=== PATIENT | male | born 1945 | race Caucasian/White ===

== ENCOUNTER → 2022-12-10 08:23 | Outpatient (BNVA) | payer OTHER, SELFPAY | PROVIDERS: PCP Internal Medicine; Visit Provider Nurse Practitioner Family | DX: Z13.89 Encounter for screening for other disorder (principal) ==

== ENCOUNTER → 2023-03-15 08:22 | Outpatient (BNVA) | payer OTHER, SELFPAY | PROVIDERS: PCP Internal Medicine; Visit Provider Nurse Practitioner Family | DX: Z13.89 Encounter for screening for other disorder (principal) ==

== ENCOUNTER 2023-06-17 09:35 | Outpatient (AMB) | payer OTHER, SELFPAY ==
[2023-06-17 09:36] VITALS: BP 132/82; PULSE 62; O2SAT 7; BMI 24.9
--- NOTE | 2023-06-17 09:36 | A.OFFVIS_ITS ---
Intake Vital Signs 06/17/23 09:36 Height 6 ft 1 in Weight 188 lb 8 oz BMI 24.9 BP 132/82 Blood Pressure Location Lt brachial Position Sitting Pulse 62 Pulse Source Pulse Oximeter Pulse Oximetry (%) 7 L Oxygen Delivery Method Room Air Intake Visit Reasons: 3m follow up balance Intake Note: Pt presents as a 3 month f/u for balance. ok, doing my balance exercises. Jojo sent me to a vestibular therapist and it seems to have resolved, I had it and it went away and came back so I went back to therapy and it went away. 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 Pt denies any significant interval medical history changes. Pt's current PD medication regimen: None Pt's primary concerns are: Pt and wish to review results of DaTscan and why we feel dx is liekly PD vs DLB, MSA, CBD, etc. He did vestibular tx- which was very effective, but then the room spinning dizziness came back- so he went back to PT an dthis resolved. ADL's: Ind Swallowing: No issues Orthostatic lightheadedness: not too bad Constipation: Some- not taking anything for this Freezing: No issues Stiffness: Sometimes in his neck Tremor: Mostly in the left hand- often with picking something up or holding something Falls: 1- leaned forward to pick something up and then kept going- and fell. Hallucinations: None Memory: No issues Sleep: Waking up a bit earlier- at 6am. Goes to bed around 10:30-11pm. May take a catnap- unintentionally. Exercise: Doing PT exercises. [facility] Medical History Hypothyroidism Surgical History Corneal transplant status Hx of cataract surgery Family History Mother Colon cancer Breast cancer Father Prostate cancer CAD (coronary artery disease) CHF (congestive heart failure) Social History (Updated 06/17/23 @ 09:42 by Liss Shane [facility]) Alcohol intake: current Alcohol intake frequency: a few times a month Patient Tobacco Use Status: Never used Tobacco Review of Systems Const All systems reviewed & are unremarkable except as noted in HPI and below Physical Exam Vital Signs: Last Vital Signs Pulse 62 06/17/23 09:36 BP 132/82 06/17/23 09:36 Pulse Ox 7 L 06/17/23 09:36 Oxygen Delivery Method Room Air 06/17/23 09:36 BMI result Body Mass Index 24.9 Const General: cooperative and no acute distress Resp Effort & Inspection: normal respiratory effort and able to speak in complete sentences Neuro Other: Mild soft voice. Mild lingual movements. BUE L > R postural and kinetic tremor. Very mild RUE stiffness. FFM- intact. Foot taps- decreased, more so on left Stands ok, mildy decreased left arm swing, stride ok, wide and multiple steps to turn. General: patient oriented x3, CN's II-XI intact bilaterally Psych: Pleasant affect Assessment & Plan Assessment & Plan (1) Parkinson's disease: Comment: + Ankit Scan (Dec 2022) Code(s): G20 - Parkinson's disease (2) Vertigo: Code(s): R42 - Dizziness and giddiness Plan Reviewed DaTscan results. Discussed at this time s/s are most c/w Parkinson's, however we will continue to monitor symptoms. No dopaminergic tx indicated at this time. Advised to continue PT exercises. Stressed importance of moving a bit more slowly and carefully. Vertigo improved- monitor clinically for now. F/u in 6 months or sooner. Coding Level of Care Code Est Pt Level 3 (25593) Diagnoses Parkinson's disease G20 Vertigo R42
== END 2023-06-17 10:37 | disposition home or self-care (01) ==
PROVIDERS: Visit Provider Nurse Practitioner Family
DX: G20 Parkinson's disease (principal); R42 Dizziness and giddiness
CPT/HCPCS: 99213

== ENCOUNTER → 2023-06-17 09:35 | Outpatient (BNVA) | payer OTHER, SELFPAY | PROVIDERS: Visit Provider Nurse Practitioner Family | DX: R42 Dizziness and giddiness (principal); G20 Parkinson's disease ==

== ENCOUNTER 2023-12-19 09:23 | Outpatient (AMB) | payer BC, SELFPAY ==
[2023-12-19 09:24] VITALS: BP 130/70; PULSE 60; O2SAT 99; BMI 25.5
--- NOTE | 2023-12-19 09:24 | MHC.OFFVIS ---
Intake Vital Signs 12/19/23 09:24 Height 6 ft 1 in Weight 193 lb 6 oz BMI 25.5 BP 130/70 Blood Pressure Location Rt brachial Position Sitting Pulse 60 Pulse Source Pulse Oximeter Pulse Oximetry (%) 99 Oxygen Delivery Method Room Air Intake Visit Reasons: 6m f/u balance - LVM Intake Note: Pt here for a follow up , still feels unbalance and tremors are still the same. Design Lead Required: No Accompanied by: Spouse Allergies No Known Allergies Allergy (Verified 12/19/23 09:28) HPI HPI Comments History of Present Illness Details 78-yr-old male presents for f/u visit of PD, accompanied by his . [place] they wonder what is expected progression of PD and what can help. Pt denies any significant interval medical history changes. Pt's current PD medication regimen: None Right-handed ADL's: Ind Swallowing: No issues Drooling: maybe some increased saliva Orthostatic lightheadedness: None Constipation: It is better now Freezing: None Stiffness: A little bit Tremor: Mostly in the left hand, a little in the right- varies. Gait/Falls: Still feels off-balance- walking straight and veers to one side or the other or if he turns quickly. 2 interval falls. One he fell forward while bending over trying to pick something up- this caused knee pain etc which is better. The other he fell backwards at the top of his stairs- was carrying something. Hallucinations: None Memory: He thinks it is ok. Sleep: Sleeping ok Exercise: He is walking on a treadmill 4 times a week, doing some light weight training, and balance exercises. [facility] Medical History (Updated 12/19/23 @ 20:43 by LOUIE Marcus) Parkinson's disease Hypothyroidism Surgical History Hx of cataract surgery Corneal transplant status Family History Mother Colon cancer Breast cancer Father Prostate cancer CAD (coronary artery disease) CHF (congestive heart failure) Social History Alcohol intake: current Alcohol intake frequency: a few times a month Patient Tobacco Use Status: Never used Tobacco Review of Systems Const All systems reviewed & are unremarkable except as noted in HPI and below Physical Exam Vital Signs: Last Vital Signs Pulse 60 12/19/23 09:24 BP 130/70 12/19/23 09:24 Pulse Ox 99 12/19/23 09:24 Oxygen Delivery Method Room Air 12/19/23 09:24 BMI result Body Mass Index 25.5 Const General: cooperative and no acute distress Resp Effort & Inspection: normal respiratory effort and able to speak in complete sentences Neuro Other: A&O x's 3 Mild soft voice. No lingual movements today BUE L > R postural and kinetic tremor. Very mild RUE stiffness. FFM- mild decrease on left. Foot taps- decreased, more so on left Stands ok, mildly decreased left arm swing, stride ok, wide and multiple steps to turn. Pleasant affect Assessment & Plan Assessment & Plan (1) Parkinson's disease without dyskinesia: Comment: + Ankit Scan (Dec 2022) Code(s): G20.A1 - Parkinson's disease without dyskinesia, without mention of fluctuations (2) Tremor: Code(s): R25.1 - Tremor, unspecified (3) Loss of balance: Code(s): R26.89 - Other abnormalities of gait and mobility Plan Reviewed that regular physical exercise is best known strategy to slow PD progression. Pt encouraged to consider trying a local PD exercise class- PD resources shared. In the meantime, advised to continue PT exercises. Reviewed risk for postural instability in PD- stressed importance of moving a bit more slowly, turning slowly and carefully.. No dopaminergic tx indicated at this time. Vertigo improved- monitor clinically for now. F/u in 6 months or sooner. Coding Level of Care Code Est Pt Level 4 (16127) Diagnoses Parkinson's disease without dyskinesia G20.A1 Tremor R25.1 Loss of balance R26.89
== END 2023-12-19 10:31 | disposition home or self-care (01) ==
PROVIDERS: PCP Student in an Organized Health Care Education/Training Program; Visit Provider Nurse Practitioner Family
DX: G20.A1 Parkinson's disease without dyskinesia, without mention of fluctuations (principal); R26.89 Other abnormalities of gait and mobility; R29.6 Repeated falls
CPT/HCPCS: 99214

== ENCOUNTER → 2023-12-19 09:23 | Outpatient (BNVA) | payer BC, SELFPAY | PROVIDERS: PCP Student in an Organized Health Care Education/Training Program; Visit Provider Nurse Practitioner Family | DX: R42 Dizziness and giddiness (principal) ==

== ENCOUNTER 2024-05-29 09:29 | Outpatient (AMB) | payer BC, SELFPAY ==
--- NOTE | 2024-05-29 09:38 | MHC.OFFVIS ---
Vital Signs 05/29/24 09:42 Height 6 ft 1 in Weight 187 lb 8 oz BMI 24.7 BP 122/70 Blood Pressure Location Lt brachial Position Sitting Pulse 64 Pulse Source Pulse Oximeter Pulse Oximetry (%) 99 Oxygen Delivery Method Room Air Intake Visit Reasons: 6 mo f/u-LMV Intake Note: Patient request 6 months f/u. Allergies No Known Allergies Allergy (Verified 05/29/24 09:41) Medication List - Last Reconciled 05/29/24 by LOUIE Marcus cyclosporine 0.05% drps ophthalmic (eye) levothyroxine 88 mcg PO DAILY lisinopril 10 mg PO DAILY multivitamin 1 tab PO DAILY prednisolone acetate 1% 1 drp ophthalmic-Right DAILY HPI Comments Details: 79-yr-old male presents for f/u visit, accompanied by his . Pt denies any significant interval medical history changes. Pt sttaes he doing overall well, just that some days he feels his gait is a bit more off balance. He is curious about trying vit B2 and b7. And benefits of cognitive activities. Pt's current PD medication regimen: None Right-handed ADL's: Ind Swallowing: No issues Drooling: maybe some increased saliva Orthostatic lightheadedness: Sometimes- if he gets up quick. Constipation: It is better now Freezing: None Stiffness: A little bit Tremor: Mostly in the left hand, a little in the right- varies. Gait/Falls: No interval falls. Hallucinations: None Memory: He thinks it is ok- most of the times . Sleep: Sleeping ok Exercise: He is walking on a treadmill 4 times a week, doing some light weight training, and balance exercises. [facility] Medical History (Updated 12/19/23 @ 20:43 by LOUIE Marcus) Parkinson's disease Hypothyroidism Surgical History Hx of cataract surgery Corneal transplant status Family History Mother Colon cancer Breast cancer Father Prostate cancer CAD (coronary artery disease) CHF (congestive heart failure) Social History Alcohol intake: current Alcohol intake frequency: a few times a month Patient Tobacco Use Status: Never used Tobacco Review of Systems Const All systems reviewed & are unremarkable except as noted in HPI and below Physical Exam Vital Signs: Last Vital Signs Pulse 64 05/29/24 09:42 BP 122/70 05/29/24 09:42 Pulse Ox 99 05/29/24 09:42 Oxygen Delivery Method Room Air 05/29/24 09:42 BMI result Body Mass Index 24.7 Const General: cooperative and no acute distress Resp Effort & Inspection: normal respiratory effort and able to speak in complete sentences Neuro Other: A&O x's 3 Mild soft voice. No lingual movements today No rest tremor. BUE L > R postural and kinetic tremor. Very mild RUE stiffness. FFM- mild decrease on left. Foot taps- decreased, more so on left Stands ok, mildly decreased left arm swing, stride ok, better turn today.. Pleasant affect Assessment & Plan Assessment & Plan (1) Parkinson's disease without dyskinesia: Comment: + Ankit Scan (Dec 2022) Code(s): G20.A1 - Parkinson's disease without dyskinesia, without mention of fluctuations Category: Medical (2) Loss of balance: Code(s): R26.89 - Other abnormalities of gait and mobility Category: Medical (3) Tremor: Code(s): R25.1 - Tremor, unspecified Category: Medical Plan Pt may take a daily Vitamin B complex. No indications to start dopaminergic tx at this time. Reviewed that regular physical exercise is best known strategy to slow PD progression. Try to add new exercises and vary exercise routine. Pt encouraged to check online for PD exercise suggestions. Reinforced risk for postural instability in PD- stressed importance of moving a bit more slowly, turning slowly and carefully.. Vertigo improved- monitor clinically for now. F/u in 6 months or sooner. Coding Level of Care Code Est Pt Level 4 (02353) Diagnoses Parkinson's disease without dyskinesia G20.A1 Loss of balance R26.89 Tremor R25.1
[2024-05-29 09:42] VITALS: BP 122/70; PULSE 64; O2SAT 99; BMI 24.7
== END 2024-05-29 10:36 | disposition home or self-care (01) ==
PROVIDERS: PCP Student in an Organized Health Care Education/Training Program; Visit Provider Nurse Practitioner Family
DX: G20.A1 Parkinson's disease without dyskinesia, without mention of fluctuations (principal); R26.89 Other abnormalities of gait and mobility
CPT/HCPCS: 99214

== ENCOUNTER → 2024-05-29 09:29 | Outpatient (BNVA) | payer BC, SELFPAY | PROVIDERS: PCP Student in an Organized Health Care Education/Training Program; Visit Provider Nurse Practitioner Family ==

== ENCOUNTER 2024-12-24 08:53 | Outpatient (AMB) | payer BC, SELFPAY ==
[2024-12-24 09:09] VITALS: BP 126/78; PULSE 63; O2SAT 98; BMI 25.7
--- NOTE | 2024-12-24 09:09 | A.OFFVIS_ITS ---
Vital Signs 12/24/24 09:09 Height 6 ft 1 in Weight 195 lb BMI 25.7 BP 126/78 Blood Pressure Location Lt brachial Position Sitting Pulse 63 Pulse Source Pulse Oximeter Pulse Oximetry (%) 98 Oxygen Delivery Method Room Air Intake Visit Reasons: 6 month f/u Allergies No Known Allergies Allergy (Verified 12/24/24 09:11) HPI Comments Details: 79-yr-old male presents for f/u visit, accompanied by his . Pt denies any significant interval medical history changes. Pt states he doing overall well, just that his balance is a bit more off. Patient has no specific questions today. His is wondering how they can cope with the uncertainties of how his Parkinson's we will progress. Pt's current PD medication regimen: None Right-handed ADL's: Ind Swallowing: No issues Drooling: denies Orthostatic lightheadedness: Sometimes- if he gets up quick. Constipation: denies Stiffness: A little bit Tremor: Mostly in the left hand, a little in the right- varies. Freezing: None Gait/Falls: He feels more off-balance, when walking straight and when turning- not in any specific direction. It is harder to get back up. No falls, but some near falls- outside and inside. Has not noticed any difference crossing threshholds. Hallucinations: None Memory: He thinks it is ok- most of the times . Sleep: Sleeping ok Exercise: He is walking on a treadmill 4 times a week, doing some light weight training, and balance exercises. [facility] Medical History Parkinson's disease Hypothyroidism Surgical History Hx of cataract surgery Corneal transplant status Family History Mother Colon cancer Breast cancer Father Prostate cancer CAD (coronary artery disease) CHF (congestive heart failure) Social History Alcohol intake: current Alcohol intake frequency: a few times a month Patient Tobacco Use Status: Never used Tobacco Physical Exam Vital Signs: Last Vital Signs Pulse 63 12/24/24 09:09 BP 126/78 12/24/24 09:09 Pulse Ox 98 12/24/24 09:09 Oxygen Delivery Method Room Air 12/24/24 09:09 BMI result Body Mass Index 25.7 Const General: cooperative and no acute distress Resp Effort & Inspection: normal respiratory effort and able to speak in complete sentences Neuro Other: A&O x's 3 Mild soft voice. No lingual movements today No rest tremor. BUE L > R postural tremor. Very mild RUE stiffness. FFM- mild decrease on left. Foot taps- decreased, more so on left Stands ok, mildly decreased left arm swing, stride ok, better turn today.. Pleasant affect Assessment & Plan Assessment & Plan (1) Parkinson's disease without dyskinesia: Comment: + Ankit Scan (Dec 2022) Code(s): G20.A1 - Parkinson's disease without dyskinesia, without mention of fluctuations Category: Medical (2) Loss of balance: Code(s): R26.89 - Other abnormalities of gait and mobility Category: Medical (3) Tremor: Code(s): R25.1 - Tremor, unspecified Category: Medical Plan Discussed trialing carbidopa levodopa today, this may help his gait and balance difficulties. Patient does not feel that he is ready or needs to start medication at this time. Patient does continue to engage in regular physical activity, however I advised him to enroll any local PD exercise class to learn PD specific strategies/e xercises. Reviewed that regular physical exercise is best known strategy to slow PD progression. Reinforced risk for postural instability in PD- stressed importance of moving a bit more slowly, turning slowly and carefully. Backspace Discussed with the often tremor predominant PD will progress more slowly than other subtypes of PD. Reviewed that not all patients with PD we will acquire all potential symptoms of PD. And though we can not know for sure which symptoms he will develop at this time, we will continue to follow patient closely, and assess for an address any symptoms as they arise. Vertigo improved- monitor clinically for now. F/u in 6 months or sooner. Coding Level of Care Code Est Pt Level 4 (64913) Diagnoses Parkinson's disease without dyskinesia G20.A1 Loss of balance R26.89 Tremor R25.1 Time Spent (min) 30
== END 2024-12-24 09:58 | disposition home or self-care (01) ==
PROVIDERS: PCP Student in an Organized Health Care Education/Training Program; Visit Provider Nurse Practitioner Family
DX: G20.A1 Parkinson's disease without dyskinesia, without mention of fluctuations (principal); R26.89 Other abnormalities of gait and mobility
CPT/HCPCS: 99214

== ENCOUNTER 2025-07-19 10:20 | Outpatient (AMB) | payer BC, SELFPAY ==
--- NOTE | 2025-07-19 10:31 | A.OFFVIS_ITS ---
Vital Signs 07/19/25 10:48 Height 6 ft 1 in Weight 191 lb 8 oz BMI 25.3 BP 132/66 Blood Pressure Location Lt brachial Position Sitting Pulse 74 Pulse Source Pulse Oximeter Pulse Oximetry (%) 97 Oxygen Delivery Method Room Air Intake Visit Reasons: 6mnth follow up Intake Note: Patient presents 6 month follow up for Parkinson's. Accompanied by: Spouse Allergies No Known Allergies Allergy (Verified 07/19/25 10:50) Medication List - Last Reconciled 07/19/25 by LOUIE Marcus cyclosporine 0.05% drps ophthalmic (eye) levothyroxine 88 mcg PO DAILY lisinopril 10 mg PO DAILY loteprednol etabonate 0.5% drps ophthalmic (eye) metronidazole 0.75% ([place]) 1 appl topical BID multivitamin 1 tab PO DAILY prednisolone acetate 1% 1 drp ophthalmic-Right DAILY tamsulosin 0.4 mg PO DAILY HPI Comments Details: 80-yr-old male presents for f/u visit, accompanied by his . Pt denies any significant interval medical history changes. However, a few weeks ago, he started having room spinning dizziness when he lays down at night, ore so to the right. He has been having right ear fullness x's a few months. His PCP saw him, and gave him veronica for a few weeks but it did not work so stopped it. OTC Zyrtec was also unhelpful. Otherwise, recent infection, URI, fevers, nasal congestions, ear pain, headaches or vision changes. Previously did vestibular PT. Pt's current PD medication regimen: None Right-handed ADL's: Ind Swallowing: No issues Drooling: denies Orthostatic lightheadedness: Sometimes- if he gets up quick. Constipation: denies Stiffness: A little bit if he sits for a while Tremor: Mostly in the left hand, a little in the right- varies. Slightly increased, not significant. Freezing: None Gait/Falls: Walking is ok, but still uneasy. Not worse since he has the ear pressure. Hallucinations: None Memory: He thinks it is ok, occasionally may forget things Sleep: Sleeping ok Exercise: He is walking on a treadmill 4 times a week, doing some light weight training, and balance exercises. Started the [facility] PD class. [facility] Medical History Parkinson's disease Hypothyroidism Surgical History Hx of cataract surgery Corneal transplant status Family History Mother Colon cancer Breast cancer Father Prostate cancer CAD (coronary artery disease) CHF (congestive heart failure) Social History Alcohol intake: current Alcohol intake frequency: a few times a month Patient Tobacco Use Status: Never used Tobacco Physical Exam Vital Signs: Last Vital Signs Pulse 74 07/19/25 10:48 BP 132/66 07/19/25 10:48 Pulse Ox 97 07/19/25 10:48 Oxygen Delivery Method Room Air 07/19/25 10:48 BMI result Body Mass Index 25.3 Const General: cooperative and no acute distress HEENT Other: No palpable scalp tenderness. No discomfort on ear tongue/pull No signs of cervical lymphadenopathy. Exterior ears without erythema drainage odor Resp Effort & Inspection: normal respiratory effort and able to speak in complete sentences Neuro Other: A&O x's 3 Mild soft voice. No lingual movements today No rest tremor. BUE L > R postural tremor. Very mild RUE stiffness. FFM- mild decrease on left. Foot taps- decreased, more so on left Stands ok, mildly decreased left arm swing, stride ok, steady turn. Pleasant affect Assessment & Plan Assessment & Plan (1) Parkinson's disease without dyskinesia: Comment: + Ankit Scan (Dec 2022) Code(s): G20.A1 - Parkinson's disease without dyskinesia, without mention of fluctuations Category: Medical Qualifiers: Fluctuating manifestations: without fluctuating manifestations Qualified Code(s): G20.A1 - Parkinson's disease without dyskinesia, without mention of fluctuations (2) Loss of balance: Code(s): R26.89 - Other abnormalities of gait and mobility Category: Medical (3) Tremor: Code(s): R25.1 - Tremor, unspecified Category: Medical (4) Vertigo: Code(s): R42 - Dizziness and giddiness Category: Medical (5) Fullness in right ear: Code(s): H93.8X1 - Other specified disorders of right ear Category: Medical (6) Fullness in right ear: Code(s): H93.8X1 - Other specified disorders of right ear Category: Medical (7) Meningioma, cerebral: Comment: 6mm right tentorium- stable Code(s): D32.0 - Benign neoplasm of cerebral meninges Category: Medical Plan Patient's Parkinson's movement symptoms are currently stable, we will continue to hold on initiating dopaminergic therapy at this time. Encouraged patient to continue to engage in regular physical activity, including the [facility] PD exercise classes. Reviewed that regular physical exercise is best known strategy to slow PD progression. To reduce risk of falls and postural instability, intentionally move a bit more slowly, turning slowly and carefully. For vertigo: Trial a course of Xyzal 5 mg daily at bedtime Hold OTC saline nasal spray, instead try OTC pressurized saline nasal spray or Neti pot saline rinse- emphasizing the importance of using boiled/cooled or distilled water to reduce risk for infection. We will refer patient back for vestibular PT eval and treat, at [facility] where he previously went. We will request ENT consult - at a location in [place] (in hopes day have sooner availability than the more local ENT office). We will request follow-up brain MRI with and without contrast due to worsening dizziness, ear fullness in setting of right tentorium intracerebral meningioma. Will follow-up upon review of above and patient to follow-up in clinic in 6 months or sooner prn. Orders: Orders PT Evaluation and Treatment Today H93.8X1 - Other specified disorders of right ear MR head/brain wo/w con Today D32.0 - Benign neoplasm of cerebral meninges, H93.8X1 - Other specified disorders of right ear, R42 - Dizziness and giddiness Referrals Ear/Nose/Throat Referral H93.8X1 - Other specified disorders of right ear, R42 - Dizziness and giddiness Medications: New levocetirizine (Xyzal) 5 mg PO BEDTIME 30 tabs 3RF 30 days Coding Level of Care Code Est Pt Level 4 (89766) Diagnoses Parkinson's disease without dyskinesia or fluctuating manifestations G20.A1 Fluctuating manifestations: without fluctuating manifestations Loss of balance R26.89 Tremor R25.1 Vertigo R42 Fullness in right ear H93.8X1 Meningioma, cerebral D32.0
[2025-07-19 10:48] VITALS: BP 132/66; PULSE 74; O2SAT 97; BMI 25.3
--- OUTSIDE RECORDS SUMMARY | 2025-07-19 11:23 | XMS_ITS | Clinical Summary ---
Author Organization [address] [facility] Address [address] [place] [address] Phone Care Team Providers Care Manager Functional Name Role Phone Unavailable Primary Care Provider Unavailabl e Social History Tobacco Use Types Packs/Day Years Used Date Smoking Tobacco: Never Assessed Sex and Gender Information Value Date Recorded Sex Assigned at Not on file Legal Sex Male 5:16 AM EST Gender Identity Not on file Sexual Orientation Not on file Plan of Treatment Health Maintenance Due Date Last Done Comments DTaP,Tdap,and Td Vaccines (1 - Tdap) 02[birth year]17/1964 Pneumococcal Vaccine: 50+ Ye ars (1 of 1 - PCV) 1995 Zoster Vaccines (1 of 2) 1995 RSV Immunization Adult Patie nts (1 - 1-dose 75+ series) 02/17/2020 COVID-19 Vaccine (1 - 2023-2 5 season) 2024 Depression Screening 12/02/2024 Cholesterol Screening (Lipid Panel) 03/18/2025 Falls Risk Assessment 03/18/2025 Social Influencers of Health Screening 03/18/2025 Influenza Vaccine (#1) 2025 HIB Vaccines Aged Out No longer eligi ble based on patient's age to complete this topic HPV Vaccines Aged Out No longer eligi ble based on patient's age to complete this topic Hepatitis A Vaccines Aged Out No long er eligible based on patient's age to complete this topic Hepatitis B Vaccines Aged Out No long er eligible based on patient's age to complete this topic IPV Vaccines Aged Out No longer eligi ble based on patient's age to complete this topic MMR Vaccines Aged Out No longer eligi ble based on patient's age to complete this topic Meningococcal ACWY Vaccine Aged Out N o longer eligible based on patient's age to complete this topic Meningococcal B Vaccine Aged Out No l onger eligible based on patient's age to complete this topic RSV Immunization Patients Un owen 20 months Aged Out No longer eligible b ased on patient's age to complete this topic Varicella Vaccines Aged Out No longer eligible based on patient's age to complete this topic Insurance MEDICARE [facility]
--- OUTSIDE RECORDS SUMMARY | 2025-07-19 11:23 | XMS_ITS | Clinical Summary ---
Author Organization [facility] Address [address] [facility] [address] [place] [id number] Phone Care Team Providers Care Accounting Intern Name Role Phone Atul Danielle MD Primary Care Provider [phone] Suzie Sanchez MD Unavailable [phone] Allergies No known active allergies Medications levothyroxine (SYNTHROID, LEVOTHROID) 88 MCG tablet Take 88 mcg by mouth daily. 3 9 Active RESTASIS 0.05 % suspension PUT 1 DROP INTO BOTH EYES TWICE A DAY 3 9 Active aspirin 81 MG EC tablet Take 81 mg by mouth 3 (three) times a week. Active multivitamin per tablet Take 1 tablet by mouth daily. Active ofloxacin (OCUFLOX) 0.3 % ophthalmic solution Place 1 drop into the left eye 4 (four) times a day. Place 1(one) drop into the left eye 4(four) times a day. To begin after the procedure and continue as directed. 5 mL 1 1 Active prednisoLONE acetate (PRED FORTE) 1 % ophthalmic suspension Place 1 drop into the right eye daily. 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 Not on harry e 03/29/2023 Are you concerned about learning? Not on file 03/29/2023 No 03/29/2023 No 03/29/2023 Digital Access Answer Date Recorded No 04/27/2023 No 04/27/2023 Reliable internet access at home? Not on file 04/27/2023 Device with a working camera? Not on file Sex and Gender Information Value Date Recorded Sex Assigned at Not on file Legal Sex Male 10:51 AM EST Gender Identity Not on file Sexual Orientation Not on file Last Filed Vital Signs Vital Sign Reading Time Taken Comments Blood Pressure 129/74 06/28/2020 2:47 PM EDT Pulse 52 06/28/2020 2:47 PM EDT Temperature 37.1 C (98.8 F) 06/28/2020 12:42 PM EDT Respiratory Rate 9 06/28/2020 2:47 PM EDT Oxygen Saturation 100% 06/28/2020 2:47 PM EDT Inhaled Oxygen Concentration - - Weight - - Height - - Body Mass Index - - Plan of Treatment Health Maintenance Due Date Last Done Comments LIPID PANEL 1945 TSH LEVEL 1945 DEPRESSION SCREENING 1957 ZOSTER VACCINES (2 of 3) 02/22/2010 12/28/2009 RSV VACCINE (1 - 1-dose 75+ series) 02/17/2020 Adult Td,Tdap Booster 04/29/2023 04/29/2013 COVID-19 VACCINE ( - 2023-2 5 season) 2024 02/03/2021, 01/06/2021 PNEUMOCOCCAL VACCINES (50+ years) Completed 05/22/2017, 04/23/2011 SMOKING STATUS SCREENING (On ce After 26 Yrs) Completed 05/18/2024 HEPATITIS A VACCINES Aged Out No long er eligible based on patient's age to complete this topic HIB VACCINES Aged Out No longer eligi ble based on patient's age to complete this topic MENINGOCOCCAL VACCINES (ACWY) Aged Out No longer eligible based on patient's age to complete this topic MENINGOCOCCAL VACCINES (B) Aged Out N o longer eligible based on patient's age to complete this topic Medical Devices Implanted Type Area It Admin Device Identifier Shelf Expiration Date Model / Serial / Lot Lens Intraocular Sofport Li61ao 26.5d-06/30/2019 Implanted: 019 (Quantity not on file) BAUSCH 08/31/2023 [id number] 26.5D / / Description:OS Lens Intraocular Sofport Li61ao 25.0d-07/28/2019 Implanted: 019 (Quantity not on file) BAUSC 05/01/2023 [id number] 25.0D / / Description:od Whole Cornea 06/28/2020 Implanted: 020 (Quantity not on file) Right: Eye Description:CorneaGen - Evelyne on Whole Cornea Donor ID#: [id number] Tissue ID#[id number] DIN: [id number] Product Code: [id number] FIN(P): [id number] EXP: 07/04/2020 Insurance [employer] Member Subscriber Plan / Payer (Ef fective 2008-Present) Name:Kody Diaz Relation to Subscriber:Self Name:Kody Diaz Payer ID:[id number] (NAIC) Type:PPO Address: [address] MEDICARE A [employer] MEDICARE A Care Teams Accounting Intern Relationship Specialty Start Date End Date Atul Danielle MD [address] [place] [address] PCP - General Internal Medicine 03/23/19 Suzie Sanchez MD [address] [place] [address] [email or web address] 08/05/19 Additional Source Comments The information contained in this document represents components of the legal health record. It is not the complete legal health record.[facility]
== END 2025-07-19 12:01 | disposition home or self-care (01) ==
LOC: HO.HSMS 10:20
PROVIDERS: PCP Student in an Organized Health Care Education/Training Program; Visit Provider Nurse Practitioner Family
DX: G20.A1 Parkinson's disease without dyskinesia, without mention of fluctuations (principal); R26.89 Other abnormalities of gait and mobility; R25.1 Tremor, unspecified; R42 Dizziness and giddiness; H93.8X1 Other specified disorders of right ear; D32.0 Benign neoplasm of cerebral meninges
CPT/HCPCS: 99214